=== PATIENT | male | born 1990 | race Caucasian/White ===

== ENCOUNTER 2019-04-02 01:18 | Emergency (ER) | payer SELFPAY, OTHER | END 2019-04-02 02:09 | disposition home or self-care (01) | LOC: FER 01:18 ==

== ENCOUNTER 2019-06-10 17:46 | Emergency (ER) | payer SELFPAY ==
[2019-06-10 18:04] VITALS: BP 118/82; PULSE 78; TEMP 97.4; BMI 25.9
[2019-06-10] MEDS ORDERED: IBUPROFEN 600 MG TABLET (FP) PO ONE ×2 (18:22→18:23)
--- NOTE | 2019-06-10 18:24 | PDOC ---
Attending Attestation - Resident Resident Name: Mani Ragsdale - ED Attending Attestation I have performed the following: I have examined & evaluated the patient, The case was reviewed & discussed with the resident, I agree w/resident's findings & plan, Exceptions are as noted - HPI HPI: 06/10/19 18:22 29 M with no PMH presents to ED with 1 week of intermittent headaches. Pt describes a band-like pain wrapping around his forehead. Feels like a tightness. Denies thunderclap. Denies worst headache of life. Denies N/V. Denies F/C. Denies neck stiffness. Pt states that it comes and goes. Sometimes responds to tylenol. Pain is not worse with lying flat. He is not awakened by pain. - Physicial Exam PE: 06/10/19 18:23 "GENERAL: Awake, alert, and fully oriented, in no acute distress. HEAD: No signs of trauma EYES: PERRLA, EOMI, sclera anicteric, conjunctiva clear ENT: Auricles normal inspection, hearing grossly normal, nares patent, oropharynx clear without exudates. Moist mucosa NECK: Nontender, no stepoffs, Normal ROM, supple, no lymphadenopathy, JVD, or masses LUNGS: Breath sounds equal, clear to auscultation bilaterally. No wheezes, and no crackles HEART: Regular rate and rhythm, normal S1 and S2, no murmurs, rubs or gallops ABDOMEN: Soft, nontender, normoactive bowel sounds. No guarding, no rebound. No masses EXTREMITIES: Normal range of motion, no edema. No clubbing or cyanosis. No cords, erythema, or tenderness NEUROLOGICAL: Cranial nerves II through XII intact. 5/5 strength and sensation in all extremities, Normal speech, normal gait, normal cerebellar function SKIN: Warm, Dry, normal turgor, no rashes or lesions noted. - Medical Decision Making 06/10/19 18:23 29 M with intermittent headaches x 1 week. Likely tension headaches. No neuro deficits on exam. No red flags for meningitis/SAH. - Motrin - F/u neuro Pt is well appearing, with normal vitals. Clinically stable for DC at this time. I discussed the physical exam findings, ancillary test results and final diagnoses with the patient. I answered all of the patient's questions. The patient was satisfied with the care received and felt comfortable with the discharge plan and treatment plan. The patient agrees to follow up with the primary care physician within 24-72 hours.
--- NOTE | 2019-06-10 18:27 | PDOC ---
History of Present Illness - General Chief Complaint: Headache Stated Complaint: HEADACHE Time Seen by Provider: 06/10/19 17:48 History Source: Patient Exam Limitations: No Limitations - History of Present Illness Initial Comments: 06/10/19 18:20 29 yo male no sig pmh presents for 1 week of MORGAN. MORGAN described as a tight pressure wrapping around his head that is intermittent and made worse with driving. Denies LOC, trauma, changes in vision, N/V/F/C, confusion, weakness/ sensory changes on 1 side of his body, neck pain, CP, SOB, abdominal pain. Pt denies Hx of MORGAN but the MORGAN comes on gradually and worsens, did not wake him from sleep and not made worse with lying flat. Tried tylenol and excedrin with some relief of pain. Of note, pt father 2 weeks ago, he began a new job with new sleep schedule (only sleeps 3 hours a night) and is also going through a divorce. Past History - Past Medical History Allergies/Adverse Reactions: Allergies Allergy/AdvReac Type Severity Reaction Status Date / Time No Known Allergies Allergy Verified 08/18/16 19:09 Home Medications: Ambulatory Orders NK [No Known Home Medication] 06/10/19 COPD: No Kidney Stones: Yes - Psycho Social/Smoking Cessation Hx Smoking Status: No Smoking History: Never smoked Have you smoked in the past 12 months: No Number of Cigarettes Smoked Daily: 0 Hx Alcohol Use: No Drug/Substance Use Hx: No Substance Use Type: None Review of Systems - Review of Systems Constitutional: No: Chills, Fever HEENTM: No: Eye Pain, Blurred Vision, Double Vision Respiratory: No: Shortness of Breath Cardiac (ROS): No: Chest Pain ABD/GI: No: Constipated, Diarrhea, Nausea, Vomiting : No: Burning, Dysuria, Frequency, Flank Pain Musculoskeletal: No: Back Pain Integumentary: No: Change in Color Neurological: Yes: Headache. No: Numbness, Paresthesia, Weakness, Unsteady Gait , Ataxia, Dizziness *Physical Exam - Vital Signs Last Vital Signs Temp Pulse Resp BP Pulse Ox 97.4 F L 78 15 118/82 98 06/10/19 17:48 06/10/19 17:48 06/10/19 17:48 06/10/19 17:48 10/17/19 17:48 - Physical Exam General Appearance: Yes: Nourished, Appropriately Dressed. No: Apparent Distress HEENT: positive: EOMI, FREDDY, Normal Voice, Hearing Grossly Normal. negative: Sinus Tenderness Neck: positive: Supple. negative: Rigid, Carotid bruit, Tender lateral, Tender midline Respiratory/Chest: positive: Lungs Clear, Normal Breath Sounds. negative: Accessory Muscle Use, Crackles, Rales, Rhonchi, Stridor, Wheezing Cardiovascular: positive: Regular Rhythm, Regular Rate, S1, S2. negative: Edema , JVD, Murmur Vascular Pulses: Dorsalis-Pedis (R): 4+, Doralis-Pedis (L): 4+ Gastrointestinal/Abdominal: positive: Flat, Soft. 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 negative: Facial Droop, Numbness, Sensory Deficit, Finger to Nose (normal), Confused, Disoriented Medical Decision Making - Medical Decision Making 06/10/19 18:29 29 yo male no sig pmh presents for 1 week of MORGAN. MORGAN described as a tight pressure wrapping around his head that is intermittent and made worse with driving. Denies LOC, trauma, changes in vision, N/V/F/C, confusion, weakness/ sensory changes on 1 side of his body, neck pain, CP, SOB, abdominal pain. Pt denies Hx of MORGAN but the MORGAN comes on gradually and worsens, did not wake him from sleep and not made worse with lying flat. Tried tylenol and excedrin with some relief of pain. Of note, pt father 2 weeks ago, he began a new job with new sleep schedule (only sleeps 3 hours a night) and is also going through a divorce. vitals stable DDX INLT: tension MORGAN, SAH (no neuro deficits, not thunderclap in nature), migraine will give motrin for likely tension MORGAN and reassess discussed no need at this time for head ct at this time due to normal neuro exam and non concerning HPI however, if symptoms worsen or progress pt can return and have one done at that time pt safe for DC home with PCP f/u and decrease stress and increase sleep along with NSAID as needed Also given Neuro referral if headaches persist 06/10/19 18:44 pt admits to minor improvement in MORGAN Discharge - Discharge Information Problems reviewed: Yes Clinical Impression/Diagnosis: Headache Condition: Good Disposition: HOME - Admission No - Follow up/Referral Referrals: Sukumar Zelaya MD [Staff Physician] - - Patient Discharge Instructions Patient Printed Discharge Instructions: Tension Headache, DI for Headache Additional Instructions: Please see your primary doctor within the next 48 hours. Take Motrin every 4-6 hours as needed for headaches. Return to the ER for new or concerning symptoms including but not limited to: severe headaches, changes in vision, weakness or sensory changes on 1 side of your body, confusion, fevers or chills If headaches persist, make an appointment with the neurologist referred to you. Thank you - Post Discharge Activity
== END 2019-06-10 18:49 | disposition home or self-care (01) ==
LOC: FER 17:46
DX: R51 Headache (principal); N20.0 Calculus of kidney
CPT/HCPCS: 99281-25

== ENCOUNTER 2019-07-19 18:45 | Emergency (ER) | payer SELFPAY ==
[2019-07-19 19:12] VITALS: BP 118/80; PULSE 83; TEMP 98.1; BMI 26.6
--- NOTE | 2019-07-20 01:20 | PDOC ---
Documentation entered by Constantine Peters SCRIBE, acting as scribe for Sofya Sams MD. Sofya Sams MD: This documentation has been prepared by the Fran lewis Aiswarya, SCRIBE, under my direction and personally reviewed by me in its entirety. I confirm that the documentation accurately reflects all work, treatment, procedures, and medical decision making performed by me. History of Present Illness - General Chief Complaint: Headache Stated Complaint: HEADACHE Time Seen by Provider: 07/19/19 19:14 History Source: Patient Exam Limitations: No Limitations - History of Present Illness Initial Comments: 07/19/19 20:12 The patient is a 29 year old male, with no significant PMH, who presents to the emergency department complaining of headaches and lightheadedness that began 1 month ago. The patient states pain is located to the left side of his head radiating to the frontal and right jaw with a severity of 10/10, no relief with Tylenol. Patient states he went to [place] for his father's in Apr when he start to notice symptoms. He reports coming to the ER 1 month ago where he was diagnosed with tension headaches. The patient denies chest pain and shortness of breath. Denies fever, chills, nausea, vomit, diarrhea and constipation. Denies dysuria, frequency, urgency and hematuria. Allergies: NKDA Past surgical history: None reported Social history: None reported PCP: None reported Past History - Past Medical History Allergies/Adverse Reactions: Allergies Allergy/AdvReac Type Severity Reaction Status Date / Time No Known Allergies Allergy Verified 07/19/19 19:02 Home Medications: Ambulatory Orders Acetaminophen [Tylenol -] 1,000 mg PO ASDIR 07/19/19 Naproxen Sodium [Anaprox Ds] 550 mg PO BID PRN #20 tablet 07/19/19 COPD: No Kidney Stones: Yes Other medical history: tension headaches - Psycho Social/Smoking Cessation Hx Smoking Status: No Smoking History: Never smoked Have you smoked in the past 12 months: No Number of Cigarettes Smoked Daily: 0 Information on smoking cessation initiated: No Hx Alcohol Use: No Drug/Substance Use Hx: No Substance Use Type: None Review of Systems - Review of Systems Able to Perform ROS?: Yes Comments:: 07/19/19 20:13 GENERAL/CONSTITUTIONAL: No fever or chills. No weakness. HEAD, EYES, EARS, NOSE AND THROAT: No change in vision. No ear pain or discharge. No sore throat. CARDIOVASCULAR: No chest pain or shortness of breath. RESPIRATORY: No cough, wheezing, or hemoptysis. GASTROINTESTINAL: No nausea, vomiting, diarrhea or constipation. MUSCULOSKELETAL: No joint or muscle swelling or pain. No back pain. SKIN: No rash NEUROLOGIC: +headache. +lightheadness. No loss of consciousness, or change in strength/sensation. ENDOCRINE: No increased thirst. No abnormal weight change. *Physical Exam - Vital Signs Last Vital Signs Temp Pulse Resp BP Pulse Ox 98.1 F 83 18 118/80 100 07/19/19 18:45 07/19/19 18:45 07/19/19 18:45 07/19/19 18:45 07/19/19 18:45 - Physical Exam Comments: 07/19/19 20:14 GENERAL: Awake, alert, and fully oriented, in no acute distress HEAD:+Bilateral maxillary and frontal tenderness on palpation. +Mild tenderness to the left parietal scalp without edema, laceration or abrasion. EYES: PERRLA, EOMI, sclera anicteric, conjunctiva clear ENT: Auricles normal inspection, hearing grossly normal, nares patent, oropharynx clear without exudates. Moist mucosa NECK: Normal ROM, supple, no lymphadenopathy, JVD, or masses LUNGS: Breath sounds equal, clear to auscultation bilaterally. No wheezes, and no crackles HEART: Regular rate and rhythm, normal S1 and S2, no murmurs, rubs or gallops NEUROLOGICAL: Cranial nerves II through XII grossly intact. Normal speech. SKIN: Warm, Dry, normal turgor, no rashes or lesions noted. ED Treatment Course - RADIOLOGY Radiology Studies Ordered: Category Date Time Status HEAD CT WITHOUT CONTRAST [CT] Stat CT Scan 07/19/19 19:46 Completed ED Progress Note - Progress Note Progress Note: As noted above, this otherwise healthy 29-year-old man presents with several week history of frequent headaches. As described above, headaches begin in the left parietal area extend across his forehead to his right jaw area. He describes some lightheadedness but has no other associated symptoms. No previous history of frequent headaches. Onset was after emotional stress of attending his father's . He was seen here a few weeks after headaches began; he was given neurologist referral for follow-up but did not pursue this ( patient did not recall receiving referral information). Exam as noted with no focal neurologic deficits. Because the patient has had persistent headaches for several weeks and no previous history of chronic headache, noncontrast head CT was performed to evaluate for acute intracranial pathology. Noncontrast head CT interpreted by Dr. Nolasco of the radiology staff: No evidence of acute intracranial pathology; no clear evidence of acute sinusitis Results discussed with the patient. Since he had been mainly taking acetaminophen and has no contraindications to the use of NSAIDs, naproxen in the form of Anaprox DS twice a day as needed for headache will be prescribed. He has been cautioned to take this medication with food. He should return to the ER if he has severe, persistent pain or develops severe lightheadedness/ vomiting. Otherwise, he should plan on following up with his original neurology referral: Dr. Zelaya. Referral information provided for the patient. Discharge - Discharge Information Problems reviewed: Yes Clinical Impression/Diagnosis: Headache Qualifiers: Headache type: tension-type Headache chronicity pattern: episodic headache Intractability: not intractable Qualified Code(s): G44.219 - Episodic tension- type headache, not intractable Condition: Stable Disposition: HOME - Additional Discharge Information Prescriptions: Naproxen Sodium [Anaprox Ds] 550 mg PO BID PRN #20 tablet PRN Reason: Headache - Follow up/Referral Referrals: Sukumar Zelaya MD [Staff Physician] - - Patient Discharge Instructions Patient Printed Discharge Instructions: Tension Headache Additional Instructions: Anaprox DS twice a day as needed for headache (take with food) Follow-up with neurologist () within the next week as discussed Return to ER if you have persistent severe headache or develop vomiting/severe dizziness - Post Discharge Activity
== END 2019-07-19 20:50 | disposition home or self-care (01) ==
LOC: FER 18:45
DX: G44.219 Episodic tension-type headache, not intractable (principal)
CPT/HCPCS: 70450-TC; 99283-25